=== PATIENT | female | born 1975 | race Caucasian/White ===

== ENCOUNTER 2023-02-16 14:36 | Emergency (ER) | payer OTHER ==
[~2023-02-16] VITALS: Ht 162.6 cm; Wt 81.6 kg
[2023-02-16 15:03] VITALS: BP 109/64
--- NOTE | 2023-02-16 15:35 | NUR ---
AMBULATED TO BED4, C/O LLQ PAIN. INCREASE WITH PALPATION
[2023-02-16] MEDS ORDERED: IBUPROFEN 600 MG TAB PO ONE (15:50)
[2023-02-16 16:04] LABS: APPEARANCE,URINE CLEAR (CLEAR); BILIRUBIN,URINE NEGATIVE (NEGATIVE); BLOOD, URINE 1+ (NEGATIVE); COLOR,URINE YELLOW (YELLOW); LEUKOCYTE ESTERASE ,URINE TRACE (NEGATIVE); NITRITE, URINE NEGATIVE (NEGATIVE); UGLUCOSE NEGATIVE (NEGATIVE)
--- NOTE | 2023-02-16 16:25 | NUR ---
47 yo/f presents to ED w c/o L abdominal pain 8/10 x1 day. pt denies fevers, chills, n/v/d, or urinary synmptoms. pmh: denies allergies: denies
[2023-02-16] MEDS ORDERED: NITR100C7 PO (16:33)
[2023-02-16] MEDS ORDERED: PYR100 PO (16:37)
[2023-02-16] MEDS ORDERED: IBUP-2213 PO (16:37)
[2023-02-16 16:47] VITALS: BP 132/72
--- NOTE | 2023-02-16 16:48 | NUR ---
Patient discharged with v/s stable. Written and verbal after care instructions given and explained. Patient alert, oriented and verbalized understanding of instructions. Ambulatory with to home. All questions addressed prior to discharge. ID band removed. Patient advised to follow up with PMD. Rx of PYRIDIUM, MACROBID, MOTRIN given. Patient educated on indication of medication including possible reaction and side effects. Opportunity to ask questions provided and answered.
== END 2023-02-16 16:47 | disposition home or self-care (01) ==
LOC: MED 14:36
DX: N39.0 Urinary tract infection, site not specified (principal); Z79.899 Other long term (current) drug therapy; Z90.49 Acquired absence of other specified parts of digestive tract
CPT/HCPCS: 81001; 81025; 99283